=== PATIENT | female | born 1955 | race Caucasian/White ===

== ENCOUNTER → 2018-01-26 | Outpatient (CLI) | payer OTHER ==
[2018-01-26 09:16] LABS: ADD MAN DIFF? NO
[2018-01-26 09:50] LABS: ALBUMIN 3.5 g/dL (3.4-5.0); ANION GAP 6 (6-14); BLOOD UREA NITROGEN 13 mg/dL (7-20); CALCIUM 9.1 mg/dL (8.5-10.1); CARBON DIOXIDE 27 mmol/L (21-32); CHLORIDE 105 mmol/L (98-107); CREATININE 1.1 mg/dL (0.6-1.0); GLUCOSE 93 mg/dL (70-99); POTASSIUM 3.8 mmol/L (3.5-5.1); SODIUM 138 mmol/L (136-145)
[2018-01-26 10:00] LABS: BASO % 1 % (0-3); EOS # 0.1 x10^3/uL (0.0-0.7); EOS % 2 % (0-3); HEMATOCRIT 45.4 % (36.0-47.0); HEMOGLOBIN 15.5 g/dL (12.0-15.5); LYMPH # 1.4 x10^3/uL (1.0-4.8); LYMPH % 24 % (24-48); MEAN CORPUSCULAR HEMOGLOBIN 34 pg (25-35); MEAN CORPUSCULAR HGB CONC 34 g/dL (31-37); MEAN CORPUSCULAR VOLUME 99 fL (79-100); MONO # 0.5 x10^3/uL (0.0-1.1); MONO % 8 % (0-9); NEUT # 3.8 x10^3uL (1.8-7.7); NEUT % 65 % (31-73); PLATELET COUNT 206 x10^3/uL (140-400); RED BLOOD COUNT 4.61 x10^6/uL (3.50-5.40); RED CELL DISTRIBUTION WIDTH 14.3 % (11.5-14.5); WHITE BLOOD COUNT 5.8 x10^3/uL (4.0-11.0)
[2018-01-26 10:10] LABS: INR 1.4 (0.8-1.1); PARTIAL THROMBOPLASTIN TIME 36 SEC (24-38); PROTHROMBIN TIME PATIENT 16.6 SEC (11.7-14.0)
[2018-01-26 12:40] LABS: SEDIMENTATION RATE 5 (0-25)
[2018-01-26 12:50] LABS: BILIRUBIN,URINE NEGATIVE (NEG); CLARITY,URINE CLEAR; COLOR,URINE YELLOW; GLUCOSE,URINE NEGATIVE (NEG); NITRITE,URINE NEGATIVE (NEG); PH,URINE 6.5; PROTEIN,URINE NEGATIVE (NEG-TRACE); UROBILINOGEN,URINE 0.2 mg/dL (0.2 mg/dL)
[2018-01-26 13:26] LABS: BACTERIA,URINE FEW /HPF (0-FEW); SQUAMOUS EPITHELIAL CELL,UR MANY /LPF
[2018-01-26 23:11] LABS: MRSA BY PCR Negative (Negative)
== END | disposition home or self-care (01) ==
LOC: SURGPAT 12:56
DX: Z01.818 Encounter for other preprocedural examination (principal); M25.561 Pain in right knee; Z86.711 Personal history of pulmonary embolism
CPT/HCPCS: 36415; 71046; 80048; 81001; 82040; 85025; 85610; 85651; 85730; 87641

== ENCOUNTER → 2020-01-31 | Outpatient (CLI) | payer MEDICARE, OTHER ==
[2018-02-13 15:00] VITALS: BP 104/66
[~2020-01-31] MED LIST: ATOR10TA60 PO; BUPR200T2 PO; CELE200C PO; CYAN-25 PO; FERR325T14 PO; FEXO180T81 PO; FLUT9.9S NS; GABA300C18 PO; HYDR-2765 PO; HYDR200T5 PO; PANT20TA2 PO; PROP40TA PO; PROP60CA36 PO; RIVA20TA2 PO; SULF500T36 PO
== END | disposition home or self-care (01) ==
LOC: LAB 13:28
PROVIDERS: ATTEND Orthopaedic Surgery
DX: Z01.818 Encounter for other preprocedural examination (principal); Z11.59 Encounter for screening for other viral diseases; S76.111D Strain of right quadriceps muscle, fascia and tendon, subsequent encounter; X58.XXXD Exposure to other specified factors, subsequent encounter
CPT/HCPCS: U0003-CS

== ENCOUNTER 2020-02-04 10:09 | Observation (INO) | payer MEDICARE, OTHER ==
[~2020-02-04] VITALS: Ht 177.8 cm; Wt 119.0 kg
[~2020-02-04 10:09] MED LIST changes: +IV RINGERS,LACTATED 1000ML 1,000 ML IV SCH; +PROCHLORPERAZINE 10 MG/2 ML VIAL. IV PRN; +fentaNYL PF VIAL 100 MCG/2 ML VIAL IV PRN
[2020-02-04] MEDS ORDERED: SCOPOLAMINE 1.5MG PATCH. TD ONE (10:30)
[2020-02-04] MEDS ORDERED: LIDOCAINE 2% PF 5 ML VIAL. ONE (11:29)
[2020-02-04] MEDS ORDERED: PROPOFOL 10 MG/ML (20ML) VIAL. IV ONE (11:29)
[2020-02-04] MEDS ORDERED: DEXAMETHASONE SOD PHOS 4 MG/ML VIAL ONE (11:29)
[2020-02-04] MEDS ORDERED: fentaNYL PF VIAL 100 MCG/2 ML VIAL ONE ×2 (11:30→14:53)
[2020-02-04] MEDS ORDERED: ceFAZolin 2GM PREMIX 2 GM/50 ML BAG IV ONE (12:00)
[2020-02-04] MEDS ORDERED: SUCCINYLCHOLINE 200 MG/10 ML VIAL. ONE (12:39)
[2020-02-04] MEDS ORDERED: ROCURONIUM 50 MG/5 ML VIAL. ONE (12:39)
[2020-02-04] MEDS ORDERED: ePHEDrine PF IN SALINE 50 MG/10 ML SYRINGE. IV ONE (13:10)
[2020-02-04] MEDS ORDERED: SEVOFLURANE 61 TO 120 MINUTES. IH ONE (13:11)
[2020-02-04] MEDS ORDERED: ISOFLURANE 61 TO 120 MINUTES. IH ONE (13:11)
--- NOTE | 2020-02-04 13:12 | HP ---
ADMIT DATE: 02/04/2020 CHIEF COMPLAINT: Right knee pain and weakness. HISTORY OF PRESENT ILLNESS: The patient is nearly 2 years out from right total knee arthroplasty and has had increased very severe pain over the past couple of months on the right knee, a tearing type of sensation that occurs later in the day after more activity and fatigues with stairs, getting up out of a chair or other vigorous activity. Symptoms have become worse since her last visit a few weeks ago and she is avoiding activities such as the stairs as a result. She notes that an increased tearing sensation after a fall 2 nights about a little over a month ago prior to her last clinic visit and noticed more difficulty in her ability to get around since then as well as a setback about 4 months after total knee surgery where she had sustained a fall and had difficulty that never quite came back after extensive work in physical therapy. PAST MEDICAL HISTORY: Significant for depression and she is on Xarelto. MEDICATIONS: List is reviewed. ALLERGIES: No known drug allergies. FAMILY HISTORY: Noncontributory. REVIEW OF SYSTEMS: Denies any recent chest pain, shortness of breath, febrile illness, respiratory or urinary complications or urinary symptoms. PHYSICAL EXAMINATION: GENERAL: A pleasant, cooperative 64-year-old female, alert and oriented, no acute distress. VITAL SIGNS: Per admission sheet. HEENT: Atraumatic, normocephalic. HEART: Regular rate and rhythm. LUNGS: Clear to auscultation bilaterally. ABDOMEN: Benign. EXTREMITIES: Examination of the right knee shows a palpable defect in the central and lateral aspect of the quadriceps tendon insertion. No patellar instability is palpable and extensor mechanism overall is functional, but weak compared to the contralateral left side. She has good ligament balance of the knee. No redness, warmth or effusion. She has joint line tenderness on contralateral left knee. No gross instability. Normal alignment, stability, bilateral hips and ankles. IMAGING: Previous x-rays of the right knee show patellar baja and good alignment of the tibial, femoral components and no evidence of loosening. ASSESSMENT: 1. History of total knee replacement. 2. Right quadriceps defect pain and weakness, status post traumatic injury history. TREATMENT PLAN: I went over with her that while the quadriceps is grossly intact and functional she has a defect palpable toward the central and lateral aspect and has a low riding patella concerning for a partial quadriceps rupture, which certainly explains her recent increased pain, tearing sensation with activities and weakness. We went over nonoperative and operative options along with the recommended exploration and surgical intervention for repair of the quadriceps, the possibility of infection, nerve or blood vessel damage, medical or other anesthetic complications among others and the restrictions expected and time period for healing. All of her questions were answered. She wishes to proceed with surgical evaluation and treatment, which will occur today. CHRISTIANA WOOTEN MD DR: MERLE/nts JOB#: [id number] / [id number]
[2020-02-04] MEDS ORDERED: FAMOTIDINE 20 MG/2 ML VIAL ONE (13:37)
[2020-02-04] MEDS ORDERED: VANCOMYCIN 1 GM VIAL. ONE ×2 (13:47)
[2020-02-04] MEDS ORDERED: NEOSTIGMINE METHYLSULFATE 5 MG/5 ML SYRINGE. ONE (13:59)
[2020-02-04] MEDS ORDERED: GLYCOPYRROLATE 1 MG/5 ML VIAL. ONE (13:59)
[2020-02-04] MEDS ORDERED: diphenhydrAMINE 50 MG/ML VIAL ONE (14:08)
[2020-02-04] MEDS: fentaNYL PF VIAL 100 MCG/2 ML VIAL IV PRN ×2 (14:55→15:03)
[2020-02-04] MEDS ORDERED: MORPHINE SULFATE 2 MG/ML VIAL. ONE (15:13)
[2020-02-04] MEDS ORDERED: 0.9 % SODIUM CHLORIDE 10 ML DISP.SYRIN. IV PRN (15:15)
[2020-02-04] MEDS ORDERED: fentaNYL PF VIAL 100 MCG/2 ML VIAL IVP PRN (15:15)
[2020-02-04] MEDS ORDERED: diphenhydrAMINE 50 MG/ML VIAL IVP PRN (15:15)
[2020-02-04] MEDS: MORPHINE SULFATE 2 MG/ML VIAL. IV PRN ×2 (15:15→15:25)
[2020-02-04] MEDS ORDERED: ZOLPIDEM 5 MG TABLET. PO PRN (15:15)
[2020-02-04] MEDS ORDERED: MORPHINE SULFATE 2 MG/ML VIAL. IVP PRN (15:15)
[2020-02-04] MEDS ORDERED: DEXTROSE 50% 25 GM / 50ML DISP.SYRIN. IV PRN (15:15)
[2020-02-04] MEDS ORDERED: CALCIUM CARBONATE 500 MG TAB.CHEW PO PRN (15:15)
[2020-02-04] MEDS ORDERED: HYDROmorphone 2 MG/ML VIAL ONE (15:29)
[2020-02-04] MEDS: HYDROmorphone 2 MG/ML VIAL IV PRN ×4 (15:32→16:29)
[2020-02-04] MEDS: ONDANSETRON ODT 4 MG TAB.RAPDIS. PO SCH ×2 (18:00→23:40)
[2020-02-04 18:11] VITALS: BP 136/79
--- NOTE | 2020-02-04 18:26 | NUR ---
received from recovery. she is drowsy and oriented x4 . is Ibrahima and is at home. iv infusing in left hand. she is rating her pain between 3-4. she has good pulses, sensation and motion in bilateral lower extremities
[2020-02-04 18:41] VITALS: BP 138/74
[2020-02-04] MEDS: ONDANSETRON PF 4 MG/2 ML VIAL. IVP SCH (19:27)
[2020-02-04] MEDS: oxyCODONE IR 5 MG TABLET PO PRN (19:27)
[2020-02-04] MEDS: IV NORMAL SALINE 1000ML BAG 1,000 ML IV SCH (19:39)
[2020-02-04 20:11] VITALS: BP 126/81
[2020-02-04] MEDS: GABAPENTIN 300 MG CAPSULE. PO SCH (20:34)
[2020-02-04] MEDS: buPROPion SR 100 MG TABLET.SA. PO SCH (20:34)
[2020-02-04] MEDS: sulfaSALAzine 500 MG TABLET PO SCH (20:34)
[2020-02-04] MEDS: ATORVASTATIN CALCIUM 10 MG TABLET. PO SCH (20:35)
[2020-02-04] MEDS: RIVAROXABAN 10 MG TABLET. PO SCH (20:35)
[2020-02-04] MEDS: PROPRANOLOL 10 MG TABLET. PO SCH (20:35)
[2020-02-04 20:41] VITALS: BP 115/69
[2020-02-04 21:41] VITALS: BP 118/60
[2020-02-04 22:41] VITALS: BP 128/79
--- NOTE | 2020-02-04 23:41 | NUR ---
IV zofran given per order
[2020-02-05] MEDS: ONDANSETRON PF 4 MG/2 ML VIAL. IVP SCH ×3 (00:43→12:41)
[2020-02-05 03:48] VITALS: BP 111/45
[2020-02-05 04:55] LABS: PROTHROMBIN TIME PATIENT 18.3 SEC (11.7-14.0)
[2020-02-05] MEDS: PANTOPRAZOLE 40 MG TABLET.DR. PO SCH (05:51)
[2020-02-05] MEDS: traMADol 50 MG TABLET PO SCH ×3 (05:51→17:33)
[2020-02-05] MEDS: ONDANSETRON ODT 4 MG TAB.RAPDIS. PO SCH ×2 (05:55→12:00)
[2020-02-05] MEDS ORDERED: MAGNESIUM HYDROXIDE 2,400 MG/30 ML ORAL.SUSP. PO PRN (06:00)
[2020-02-05 07:00] VITALS: BP 112/43
[2020-02-05] MEDS: oxyCODONE IR 5 MG TABLET PO PRN ×2 (07:21→19:06)
[2020-02-05] MEDS: FLUTICASONE 50MCG/NASAL SPRAY 16GM BOTTLE. NS SCH (09:00)
[2020-02-05] MEDS: MELOXICAM 7.5 MG TABLET PO SCH (09:06)
[2020-02-05] MEDS: CYANOCOBALAMIN (VITAMIN B-12) 1,000 MCG TABLET. PO SCH (09:06)
[2020-02-05] MEDS: MULTIVITAMIN with MINERAL TABLET. PO SCH (09:06)
[2020-02-05] MEDS: ACETAMINOPHEN 500 MG TABLET PO SCH ×3 (09:06→21:28)
[2020-02-05] MEDS: sulfaSALAzine 500 MG TABLET PO SCH ×2 (09:06→21:28)
[2020-02-05] MEDS: GABAPENTIN 300 MG CAPSULE. PO SCH ×2 (09:08→21:28)
[2020-02-05] MEDS: PROPRANOLOL 10 MG TABLET. PO SCH ×2 (09:08→21:28)
[2020-02-05] MEDS: HYDROXYCHLOROQUINE 200 MG TABLET PO SCH (09:08)
[2020-02-05] MEDS: buPROPion SR 100 MG TABLET.SA. PO SCH ×2 (10:42→21:28)
[2020-02-05 11:00] VITALS: BP 99/34
[2020-02-05] MEDS: ANTI-COAG MONITOR BY PHARMACY. MC PRN (11:34)
[2020-02-05] MEDS ORDERED: ONDANSETRON PF 4 MG/2 ML VIAL. IVP PRN (12:00)
[2020-02-05] MEDS ORDERED: ONDANSETRON ODT 4 MG TAB.RAPDIS. PO PRN (12:00)
[2020-02-05 15:00] VITALS: BP 103/39
[2020-02-05] MEDS: IV NORMAL SALINE 1000ML BAG 1,000 ML IV SCH (15:14)
[2020-02-05] MEDS: RIVAROXABAN 10 MG TABLET. PO SCH (17:34)
[2020-02-05 19:00] VITALS: BP 136/49
--- NOTE | 2020-02-05 19:42 | PDOC ---
PROGRESS NOTES Date of Service DATE: 02/05/20 TIME: 19:35 Subjective Subjective Problems overnight: When I first checked on November early she had not gotten up and around with physical therapy and on a later revisit was having more difficulties with pain control and medications adjusted after therapy had worked with her Objective Vital Signs Vital Signs Date Time Temp Pulse Resp B/P (MAP) Pulse Ox O2 Delivery O2 Flow Rate FiO2 02/05/20 19:06 Room Air 02/05/20 15:00 97.7 67 16 103/39 (60) 97 97.7 02/05/20 06:51 2.0 Physical Exam Immobilizer intact dressings clean dry intact distal neurovascular status intact Labs Laboratory Tests Test 02/05/20 03:55 Prothrombin Time 18.3 SEC (11.7-14.0) Prothromb Time International Ratio 1.6 (0.8-1.1) Laboratory Tests Test 02/05/20 03:55 Prothrombin Time 18.3 SEC (11.7-14.0) Prothromb Time International Ratio 1.6 (0.8-1.1) Assessment Assessment POD#1 quadriceps advancement and allograft supplementation right knee Plan Plan of Care She is having some nausea as well as pain control issues and medications are being adjusted accordingly Continue mobilize with physical therapy Likely discharge tomorrow if these issues are satisfactorily addressed Justicifation of Admission Dx: Justifications for Admission: Justification of Admission Dx: Yes (Requiring medication adjustment for pain control and nausea) CHRISTIANA WOOTEN MD Feb 05, 2020 19:42
[2020-02-05] MEDS: ATORVASTATIN CALCIUM 10 MG TABLET. PO SCH (21:28)
--- NOTE | 2020-02-05 21:56 | PDOC4 ---
Operative Note Operative Note Date of surgery: 02/04/2020 (original operative note dictated but apparently deleted) Preoperative diagnosis: Traumatic quadriceps tendon insufficiency with history of previous total knee Postoperative diagnosis: Medial parapatellar repair and vastus medialis insertion intact with apparent thinning but not complete rupture of lateral quadriceps insertion Operative procedure: Exploration and advancement of quadriceps tendon at its superior and lateral attachments with allograft reinforcement Surgeon: Lovely Manager Bar: Jamaal adan assist Anesthesia: General Estimated blood loss: 25 cc Complications: None Allograft: Dermaspan Operative indications: Please see my clinic notes and preoperative history and physical for detailed operative indications and note that Amber was having severe tearing type pain with a sending descending stairs getting up out of a chair and had sustained a fall about 4 months out from total knee arthroplasty and never seemed to recover completely from it but has been much more limited with falls more recently and episodes of the knee giving way with stairs and getting up from a chair among other issues with worsening pain despite physical therapy and attempting ongoing strengthening activity. I had gone over with her that clinically while the medial portion of the quadriceps appeared intact it seems as if there was a defect superior laterally palpable and along with the severe clinical symptoms she had been displaying we talked about risks benefits postoperative course of exploration likely quadriceps repair and possible allograft reinforcement. We also covered the risks of continued pain weakness infection nerve or blood vessel damage medical or other anesthetic complications among others and the expected restrictions and recovery course which would be modified depending on intraoperative findings and she agrees to proceed with surgical evaluation and treatment. Operative text: Patient was identified procedure verified patient placed in the supine position on the operating table. After adequate amounts of general anesthesia were administered the right lower extremity was prepped and draped in standard sterile fashion with a thigh tourniquet. After timeout was performed patient procedure identified and verified knee was examined under anesthesia and again appeared palpably to have a defect superior lateral at the quadriceps insertion. The right lower extremity was exsanguinated by Esmarch bandage tourniquet inflated to 300 mmHg and a midline incision was made and skin was mobilized medially and laterally to allow visualization of the quadriceps insertion and while the medial parapatellar approach appeared to be completely healed with no defect and the vastus medialis insertion grossly intact the superior lateral quadriceps tendon insertion did not have a defect but the tissue appeared to be stretched such that muscle excursion was not adequate. An incision was made midline in the quadriceps tendon and she was noted to have significant scar tissue superiorly limiting the quadriceps excursion. Given her worsening pain and weakness despite extensive physical therapy postoperatively and ongoing I judged that an advancement of the quadriceps was appropriate and the vastus lateralis portion of the quadriceps was mobilized after extensively releasing the scar down tissue superiorly both medially and laterally and with a cuff of superior quadriceps retained at the patella the vastus medialis was advanced with #5 max braid suture with grasping fashion in the vastus medialis tendinous portion likewise grasping sutures were placed in the central and v astus lateralis portion of the quadriceps. The vastus medialis was first advanced then tensioned deeper with the vastus lateralis and central portion of the tendon brought more superficially. Quadriceps was better tensioned and allowed better muscular excursion with knee flexion. Thorough irrigation was carried out normal saline solution and the dermaspan graft was applied and t acked down centrally using the remaining suture ends past with a free needle and tacked down along its edges with #1 Vicryl suture. Knee was taken through motion and patellar tracking verified as well as the intended mobilization and advancement of the quadriceps to allow her better muscular function. Subcutaneous closure with buried Vicryl suture skin closure with juan m constantin d ressing was placed. A hinged knee brace locked in extension toes were noted to be warm pink following deflation of the tourniquet patient returned to recovery room in stable condition having tolerated the procedure well. Jamaal adan assist was present for the procedure assisted in the positioning prepping draping retraction closure and dressings CHRISTIANA WOOTEN MD Feb 05, 2020 21:56
[2020-02-05 23:00] VITALS: BP 125/49
[2020-02-06] MEDS: traMADol 50 MG TABLET PO SCH ×3 (00:17→12:03)
[2020-02-06 03:05] VITALS: BP 123/43
[2020-02-06] MEDS: ACETAMINOPHEN 500 MG TABLET PO SCH ×2 (03:43→08:01)
[2020-02-06 06:00] LABS: PROTHROMBIN TIME PATIENT 21.8 SEC (11.7-14.0)
[2020-02-06 07:00] VITALS: BP 108/38
[2020-02-06] MEDS: FLUTICASONE 50MCG/NASAL SPRAY 16GM BOTTLE. NS SCH (07:27)
[2020-02-06] MEDS: MULTIVITAMIN with MINERAL TABLET. PO SCH (08:00)
[2020-02-06] MEDS: PANTOPRAZOLE 40 MG TABLET.DR. PO SCH (08:00)
[2020-02-06] MEDS: PROPRANOLOL 10 MG TABLET. PO SCH (08:00)
[2020-02-06] MEDS: buPROPion SR 100 MG TABLET.SA. PO SCH (08:00)
[2020-02-06] MEDS: MELOXICAM 7.5 MG TABLET PO SCH (08:01)
[2020-02-06] MEDS: sulfaSALAzine 500 MG TABLET PO SCH (08:01)
[2020-02-06] MEDS: HYDROXYCHLOROQUINE 200 MG TABLET PO SCH (08:01)
[2020-02-06] MEDS: GABAPENTIN 300 MG CAPSULE. PO SCH (08:02)
[2020-02-06] MEDS: CYANOCOBALAMIN (VITAMIN B-12) 1,000 MCG TABLET. PO SCH (08:02)
[2020-02-06] MEDS: oxyCODONE IR 5 MG TABLET PO PRN (09:49)
[2020-02-06 11:00] VITALS: BP 117/36
[2020-02-06] MEDS: ANTI-COAG MONITOR BY PHARMACY. MC PRN (11:44)
[2020-02-06] MEDS ORDERED: TRAM50TA PO (13:33)
[2020-02-06] MEDS ORDERED: ONDA4TAB7 PO (13:33)
[2020-02-06] MEDS ORDERED: OXYC5CAP PO (13:33)
--- NOTE | 2020-02-06 13:36 | DISCH ---
DISCHARGE INSTRUCTIONS Condition on Discharge Condition on Discharge: Stable Activity After Discharge Activity Instructions for Disc: Other, see below (Weightbearing as tolerated with knee brace locked in extension, may remove for shower and sleep) Bathing Instructions: Shower-keep dressing dry Driving Instructions after Dis: Do not drive Weight Bearing Status after Di: As tolerated (Weightbearing as tolerated with brace locked in extension for ambulation) Diet after Discharge Diet after Discharge: Regular Diet Texture: Regular Liquid Texture: Thin Liquid Swallowing Supervision: None needed Wound Incision Care Wound/Incision Care: Ice to area for comfort, Do not change dressing (Keep constantin dressing intact call if saturated, when suction box stops 1 week postoperatively may remove cut and tape over tail of drain to keep sealed) Contacting the DROctavia after DC Call your doctor for: Concerns you may have Follow-Up Follow up with: primary care as needed Follow Up With: Dr. Murry in 7 to 10 days Treatment/Equipment after DC Adaptive Equipment Issued: None Warfarin Follow-Up Warfarin Follow UP: Continue Xarelto as prescribed CHRISTIANA MURRY MD Feb 06, 2020 13:36
--- NOTE | 2020-02-06 15:34 | DS ---
DATE OF DISCHARGE: 02/06/2020 ORTHOPEDIC DISCHARGE SUMMARY PRINCIPAL DIAGNOSIS: Injury to right quadriceps tendon. OPERATIVE PROCEDURE: Right quadriceps advancement and reinforcement with allograft. DISPOSITION: Home with self-care. ACTIVITY LEVEL: Weightbearing as tolerated with brace locked in extension, may remove for shower and sleep. Maintain MARIELY dressing, call if saturated. Instructions given for taping over when suction box quits in 1 week. MEDICATIONS: Resume current medications including Xarelto. New prescriptions include oxycodone 5 mg p.o. p.r.n. q. 4 hours for severe pain, tramadol 50 mg q. 4 hours p.r.n. moderate pain, Zofran 4 mg p.o. q. 8 hours p.r.n. nausea. FOLLOWUP: With Dr. Murry in 2 weeks. BRIEF DESCRIPTION OF HOSPITAL COURSE: The patient underwent uncomplicated exploration and advancement of the quadriceps tendon due to a quadriceps tendon injury with allograft reinforcement. Postoperatively, was noted to have significant nausea and pain medications had to be adjusted, weaned from IV. She got up and around well with physical therapy, likewise her brace had to be adjusted as it was slipping down somewhat postoperatively and that has been corrected. She is now getting up and around safely in ambulation and transfers and was discharged home in stable condition. CHRISTIANA MURRY MD DR: MERLE/kelly JOB#: [id number] / [id number]
== END 2020-02-06 14:35 | disposition home or self-care (01) ==
LOC: SURG 10:09 → 4 NORTH 16:00
PROVIDERS: ADMIT Orthopaedic Surgery; ATTEND Orthopaedic Surgery
DX: S76.121A Laceration of right quadriceps muscle, fascia and tendon, initial encounter (principal); M25.561 Pain in right knee; R53.1 Weakness; F32.9 Major depressive disorder, single episode, unspecified; Z96.651 Presence of right artificial knee joint; Z79.01 Long term (current) use of anticoagulants; W18.39XA Other fall on same level, initial encounter; Y93.89 Activity, other specified; Y92.89 Other specified places as the place of occurrence of the external cause; Y99.8 Other external cause status
CPT/HCPCS: 27659; 36415; 85610; 96365; 96366; 96375; 96376; 97110; 97116; 97162; 97166; 97530; 97535; A7015; G0378; G0379; J0330; J0690; J1100; J1170; J1200; J2270; J2405; J2704; J2710; J3010; J3370; J3490; J7030; Q4126